=== PATIENT | female | born 1935 | race Caucasian/White ===

== ENCOUNTER 2021-09-11 09:30 | Inpatient (IN) | payer MEDICARE ==
[2021-09-11 09:52] LABS: Hemoglobin 12.2 g/dL (12.0-16.0); Mean Corpuscular HGB CONC 31.5 g/dL (32.0-36.0); Mean Corpuscular Hemoglobin 35.2 pg (27.0-31.0); Mean Platelet Volume 6.8 fL (7.4-10.4); Platelet Count 328 thou/uL (130-400)
[2021-09-11 10:16] LABS: Anisocytosis SLIGHT = 6-15 cells (100X) (0-5/hpf); Band 2 % (5-11); Hypochromia SLIGHT = 6-15 cells (100X) (0-5/hpf); Lymphocytes 9 % (21-51); MDiff Complete? YES; Macrocytosis SLIGHT = 6-15 cells (100X) (0-5/hpf); Monocytes 18 % (0-10); Neutrophil 71 % (42-75); Platelet Morphology Comment Appears Adequate; Polychromasia SLIGHT = 2-3 cells (100X) (0-2/hpf); Red Blood Cell (RBC) Count 3.47 mill/uL (4.20-5.40); White Blood Cell (WBC) Count 28.2 thou/uL (4.8-10.8)
[2021-09-11] MEDS ORDERED: Vancomycin 1 GM/200 ML BAG ONE (10:16)
[2021-09-11] MEDS ORDERED: Cefepime 2 GM VIAL ONE (10:16)
[2021-09-11 10:26] LABS: ALT (SGPT) 16 U/L (8-55); AST (SGOT) 24 U/L (5-34); Albumin 3.7 g/dL (3.4-4.8); Alkaline Phosphatase 104 U/L (40-110); Anion Gap 17 mmol/L (10-20); BUN (Urea Nitrogen) 11 mg/dL (9.8-20.1); Bilirubin, Total 0.7 mg/dL (0.2-1.2); CK (CPK) 34 U/L (29-168); Calc. Creatinine Clearance 0 mL/min (70-130); Carbon Dioxide 19 mmol/L (23-31); Chloride 105 mmol/L (98-107); Globulin 3.2 g/dL (2.4-3.5); Glucose 298 mg/dL (83-110); Lipase 22 U/L (8-78); Potassium 4.3 mmol/L (3.5-5.1); Protein, Total 6.9 g/dL (5.8-8.1); Sodium 137 mmol/L (136-145)
[2021-09-11 10:34] LABS: Actual Bicarbonate (HCO3a) 21.8 mEq/L (22-28); Analyzer IN Cardio ER; Base Excess (BEa) -4.4 mEq/L (-2.0 to +3.0); CO2 Tension 44.6 mmHg (35.0-45.0); Calcium, Ionized (arterial) 1.16 mmol/L (1.12-1.30); Carboxyhemoglobin (COHb) 0.3 gm% (0.0-3.0); Hemoglobin (Hb) 11.3 g/dL (12.0-16.0); Potassium - ABG Lab 4.35 mmol/L (3.70-5.30); pH, Arterial 7.31 (7.35-7.45)
[2021-09-11 10:43] LABS: O2 Tension (PaO2), arterial 50.2 mmHg (> 60.0); Puncture Site RBA
[2021-09-11] MEDS ORDERED: Aspirin Chewable 81 MG TAB ONE ×2 (11:20→11:21)
[2021-09-11 11:26] LABS: Bacteria/HPF None Seen HPF (None Seen); Bilirubin Negative (Negative); Blood, Urine 2+ (Negative); Clarity Clear (Clear); Glucose, Urine (Dipstick) Normal (Negative); Ketone, Urine Negative (Negative); Leukocyte Negative Leu/uL (Negative); Nitrite Negative (Negative); Protein, Urine (Dipstick) Negative (Neg-Trace); RBC/HPF 21-50 HPF (0-3); Specific Gravity, Urine 1.013 (1.002-1.036); Squamous Epithelial None Seen HPF (0-3); Urobilinogen Normal mg/dL (Less than 2); WBC/HPF 0-3 HPF (0-3); pH, Urine 7.5 (5.0-9.0)
[2021-09-11 12:58] LABS: Lactic Acid 2.1 mmol/L (0.5-2.2)
[2021-09-11] MEDS ORDERED: Electrolyte Replacement Protocol 1 EACH FS ONE (13:26)
[2021-09-11] MEDS ORDERED: Dextrose 50% Abboject 50 ML SYRINGE SLOW IVP PRN (13:26)
[2021-09-11] MEDS ORDERED: Ventilator Sedation Protocol 1 EACH FS ONE (13:26)
[2021-09-11] MEDS ORDERED: Dextrose 5% in Water 1,000 ML IV PRN (13:26)
[2021-09-11] MEDS ORDERED: Ondansetron PF 4 MG/2 ML Vial IVP PRN (13:26)
[2021-09-11] MEDS ORDERED: Ondansetron ODT 4 MG TAB PO PRN (13:26)
[2021-09-11] MEDS ORDERED: HumaLOG 300 UNITS/3 ML VIAL SC PRN (13:26)
[2021-09-11] MEDS ORDERED: Acetaminophen 500 MG TAB PO PRN (13:26)
[2021-09-11] MEDS ORDERED: Acetaminophen 650 MG Suppository PR PRN (13:26)
[2021-09-11] MEDS ORDERED: fentaNYL Citrate-0.9 % NaCl/PF 100 ML IV SCH (13:45)
[2021-09-11] MEDS ORDERED: Lorazepam 2 MG/ML VIAL SLOW IVP PRN (13:45)
[2021-09-11] MEDS ORDERED: Electrolyte Replacement Protocol FS PRN (13:45)
[2021-09-11] MEDS ORDERED: Fentanyl BOLUS 250 ML IVPB PRN (13:45)
[2021-09-11] MEDS ORDERED: Propofol BOLUS 1,000 MG/100 ML VIAL IV PRN (13:45)
[2021-09-11] MEDS ORDERED: Propofol 1,000 MG/100 ML VIAL IV PRN (13:45)
[2021-09-11] MEDS ORDERED: Morphine 4 MG/ML VIAL SLOW IVP PRN (13:45)
[2021-09-11] MEDS ORDERED: Furosemide 20 MG/2 ML VIAL SLOW IVP SCH (14:00)
[2021-09-11] MEDS ORDERED: CEFEPIME IVPB PRN (14:04)
[2021-09-11] MEDS ORDERED: Norepinephrine 8 MG/0.9% NS 250 ML IVPB SCH (14:30)
[2021-09-11] MEDS ORDERED: Famotidine/PF 20 mg/2ml Vial SLOW IVP SCH (21:00)
[2021-09-11] MEDS: Apixaban 2.5 MG TAB PO SCH (21:07)
[2021-09-11] MEDS: Cefepime 2 GM in Sodium Chloride 0.9% 100 ML IVPB SCH (21:07)
[2021-09-12 04:30] LABS: ALT (SGPT) 11 U/L (8-55); AST (SGOT) 18 U/L (5-34); Albumin 2.9 g/dL (3.4-4.8); Alkaline Phosphatase 72 U/L (40-110); Anion Gap 17 mmol/L (10-20); BUN (Urea Nitrogen) 15 mg/dL (9.8-20.1); Bilirubin, Total 0.7 mg/dL (0.2-1.2); Calc. Creatinine Clearance 51 mL/min (70-130); Calcium 8.2 mg/dL (7.8-10.44); Carbon Dioxide 21 mmol/L (23-31); Chloride 104 mmol/L (98-107); Globulin 2.3 g/dL (2.4-3.5); Glucose 148 mg/dL (83-110); Potassium 3.5 mmol/L (3.5-5.1); Protein, Total 5.2 g/dL (5.8-8.1); Sodium 138 mmol/L (136-145)
[2021-09-12] MEDS: Levothyroxine Sodium 100 MCG TAB PO SCH (05:17)
[2021-09-12 05:41] LABS: Mean Corpuscular HGB CONC 32.1 g/dL (32.0-36.0); Mean Corpuscular Hemoglobin 35.2 pg (27.0-31.0); Mean Platelet Volume 6.8 fL (7.4-10.4); Platelet Count 232 thou/uL (130-400); RBC Distribution Width 14.7 % (11.5-14.5); Red Blood Cell (RBC) Count 2.56 mill/uL (4.20-5.40); White Blood Cell (WBC) Count 14.5 thou/uL (4.8-10.8)
[2021-09-12 05:46] LABS: #Basophils 0.1 thou/uL (0.0-0.2); #Eosinphils 0.2 thou/uL (0.0-0.7); #Lymphocytes 1.5 thou/uL (1.20-3.40); #Monocytes 1.6 thou/uL (0.11-0.59); #Neutrophils 11.1 thou/uL (1.40-6.50); %Basophils 0.8 % (0.0-1.0); %Eosinophils 1.1 % (0.0-10.0); %Lymphocytes 10.3 % (21.0-51.0); %Monocytes 11.3 % (0.0-10.0); %Neutrophils 76.6 % (42.0-75.0)
[2021-09-12] MEDS ORDERED: Potassium Chloride 40 MEQ in Premix Bag 1 BAG IVPB SCH (06:15)
[2021-09-12] MEDS ORDERED: Magnesium 2 GM/50 ML(in water) 2 GM in Premix Bag 1 BAG IVPB SCH (06:15)
[2021-09-12] MEDS ORDERED: Loratadine 10 MG TAB PO SCH (09:00)
[2021-09-12] MEDS ORDERED: Vancomycin HCl 1 GM in Sodium Chloride 0.9% 250 ML 250 ML IVPB SCH (11:00)
[2021-09-12] MEDS: Pantoprazole 40 MG VIAL IVP SCH (11:01)
[2021-09-12] MEDS: Apixaban 2.5 MG TAB PO SCH ×2 (11:01→22:24)
[2021-09-12] MEDS: Cefepime 2 GM in Sodium Chloride 0.9% 100 ML IVPB SCH ×2 (11:01→22:26)
[2021-09-12] MEDS: HYDROcodone/Acetaminophen 5/325 mg Tablet PO PRN (16:19)
[2021-09-12] MEDS: Carvedilol 3.125 MG TAB PO SCH (16:20)
[2021-09-12] MEDS: metFORMIN 500 MG TAB PO SCH (17:44)
[2021-09-12] MEDS: Lactase 9,000 UNIT CHEWABLE TAB PO PRN (17:45)
[2021-09-12] MEDS: Mometasone Furoate 30 PUFF 220 MCG INH SCH (19:54)
[2021-09-12] MEDS: Gabapentin 300 MG CAP PO SCH (22:24)
[2021-09-12] MEDS: Atorvastatin Calcium 20 MG TAB PO SCH (22:24)
[2021-09-12] MEDS: predniSONE 1 MG TAB PO SCH (22:26)
[2021-09-12] MEDS: Potassium Chloride 20 MEQ TAB PO SCH (22:30)
[2021-09-13] MEDS ORDERED: hydrOXYzine 25 MG TAB PO PRN (00:24)
[2021-09-13 04:14] LABS: #Basophils 0.1 thou/uL (0.0-0.2); #Eosinphils 0.2 thou/uL (0.0-0.7); #Lymphocytes 1.1 thou/uL (1.20-3.40); #Monocytes 1.5 thou/uL (0.11-0.59); #Neutrophils 9.6 thou/uL (1.40-6.50); %Basophils 0.4 % (0.0-1.0); %Eosinophils 1.8 % (0.0-10.0); %Lymphocytes 9.1 % (21.0-51.0); %Monocytes 11.7 % (0.0-10.0); Hemoglobin 6.7 g/dL (12.0-16.0); Mean Corpuscular HGB CONC 32.4 g/dL (32.0-36.0); Mean Platelet Volume 6.7 fL (7.4-10.4); Platelet Count 210 thou/uL (130-400); RBC Distribution Width 14.4 % (11.5-14.5); Red Blood Cell (RBC) Count 1.86 mill/uL (4.20-5.40); White Blood Cell (WBC) Count 12.5 thou/uL (4.8-10.8)
[2021-09-13 04:37] LABS: ALT (SGPT) 10 U/L (8-55); AST (SGOT) 18 U/L (5-34); Albumin 2.6 g/dL (3.4-4.8); Alkaline Phosphatase 69 U/L (40-110); Anion Gap 11 mmol/L (10-20); BUN (Urea Nitrogen) 15 mg/dL (9.8-20.1); Bilirubin, Total 0.6 mg/dL (0.2-1.2); Calc. Creatinine Clearance 61 mL/min (70-130); Calcium 7.8 mg/dL (7.8-10.44); Carbon Dioxide 24 mmol/L (23-31); Chloride 105 mmol/L (98-107); Globulin 2.3 g/dL (2.4-3.5); Glucose 112 mg/dL (83-110); Potassium 3.6 mmol/L (3.5-5.1); Protein, Total 4.9 g/dL (5.8-8.1); Sodium 136 mmol/L (136-145)
[2021-09-13 05:06] LABS: #Basophils 0.1 thou/uL (0.0-0.2); #Eosinphils 0.2 thou/uL (0.0-0.7); #Lymphocytes 0.9 thou/uL (1.20-3.40); #Monocytes 1.2 thou/uL (0.11-0.59); %Basophils 0.5 % (0.0-1.0); %Eosinophils 1.7 % (0.0-10.0); %Lymphocytes 8.3 % (21.0-51.0); %Monocytes 11.4 % (0.0-10.0); %Neutrophils 78.1 % (42.0-75.0); Hemoglobin 7.6 g/dL (12.0-16.0); Mean Corpuscular Hemoglobin 35.4 pg (27.0-31.0); Mean Platelet Volume 7.1 fL (7.4-10.4); Platelet Count 187 thou/uL (130-400); RBC Distribution Width 14.4 % (11.5-14.5); Red Blood Cell (RBC) Count 2.15 mill/uL (4.20-5.40); White Blood Cell (WBC) Count 10.2 thou/uL (4.8-10.8)
[2021-09-13] MEDS: Levothyroxine Sodium 100 MCG TAB PO SCH (05:59)
[2021-09-13] MEDS ORDERED: Magnesium 2 GM/50 ML(in water) 2 GM in Premix Bag 1 BAG IVPB SCH (06:30)
[2021-09-13 06:41] LABS: Legionella Urinary Ag Negative (Negative); Strep pneumo Urine Ag NEGATIVE (NEGATIVE)
[2021-09-13] MEDS: Ferrous Sulfate 325 MG TAB PO SCH (08:45)
[2021-09-13] MEDS: metFORMIN 500 MG TAB PO SCH ×2 (08:47→18:28)
[2021-09-13] MEDS: Gabapentin 300 MG CAP PO SCH ×3 (08:48→22:05)
[2021-09-13] MEDS: Aspirin 81 mg Enteric Coated Tablet PO SCH (08:48)
[2021-09-13] MEDS: Loratadine 10 MG TAB PO SCH (08:49)
[2021-09-13] MEDS: Pantoprazole 40 MG VIAL IVP SCH (08:51)
[2021-09-13] MEDS: predniSONE 1 MG TAB PO SCH ×3 (08:51→22:16)
[2021-09-13] MEDS: Potassium Chloride 20 MEQ TAB PO SCH ×3 (08:52→22:07)
[2021-09-13] MEDS ORDERED: Cetirizine HCl 10 MG TAB PO SCH (09:00)
[2021-09-13] MEDS: Carvedilol 3.125 MG TAB PO SCH ×2 (09:37→18:28)
[2021-09-13] MEDS: HYDROcodone/Acetaminophen 5/325 mg Tablet PO PRN ×3 (09:45→22:27)
[2021-09-13] MEDS: Apixaban 2.5 MG TAB PO SCH ×2 (09:47→22:05)
[2021-09-13] MEDS: Cefepime 2 GM in Sodium Chloride 0.9% 100 ML IVPB SCH ×2 (09:50→22:08)
[2021-09-13] MEDS: Lactase 9,000 UNIT CHEWABLE TAB PO PRN ×2 (10:18→18:29)
[2021-09-13] MEDS: Stress 600 With Zinc 1 TAB PO SCH (10:19)
[2021-09-13] MEDS: Lidocaine 5% Patch TD SCH (10:20)
[2021-09-13] MEDS: Lactated Ringer's 1,000 ML IV SCH ×2 (11:37→12:00)
[2021-09-13] MEDS: Mometasone Furoate 30 PUFF 220 MCG INH SCH (19:10)
[2021-09-13] MEDS: Atorvastatin Calcium 20 MG TAB PO SCH (22:05)
[2021-09-13] MEDS: Transdermal Patch Removal TOP SCH (22:16)
[2021-09-14] MEDS: Diclofenac 1% 100 GM GEL TP PRN (00:30)
[2021-09-14] MEDS: HYDROcodone/Acetaminophen 5/325 mg Tablet PO PRN ×2 (04:48→21:25)
[2021-09-14] MEDS: Levothyroxine Sodium 100 MCG TAB PO SCH (04:56)
[2021-09-14] MEDS: Gabapentin 300 MG CAP PO SCH ×3 (09:18→21:22)
[2021-09-14] MEDS: Lactase 9,000 UNIT CHEWABLE TAB PO PRN (09:18)
[2021-09-14] MEDS: Potassium Chloride 20 MEQ TAB PO SCH ×3 (09:19→21:24)
[2021-09-14] MEDS: Aspirin 81 mg Enteric Coated Tablet PO SCH (09:20)
[2021-09-14] MEDS: metFORMIN 500 MG TAB PO SCH ×2 (09:20→17:07)
[2021-09-14] MEDS: predniSONE 1 MG TAB PO SCH (09:20)
[2021-09-14] MEDS: Stress 600 With Zinc 1 TAB PO SCH (09:20)
[2021-09-14] MEDS: Cefepime 2 GM in Sodium Chloride 0.9% 100 ML IVPB SCH ×2 (09:20→21:26)
[2021-09-14] MEDS: Carvedilol 3.125 MG TAB PO SCH ×2 (09:20→17:06)
[2021-09-14] MEDS: Loratadine 10 MG TAB PO SCH (09:20)
[2021-09-14] MEDS: Apixaban 2.5 MG TAB PO SCH ×2 (09:20→21:22)
[2021-09-14] MEDS: Ferrous Sulfate 325 MG TAB PO SCH (09:20)
[2021-09-14] MEDS: Pantoprazole 40 MG VIAL IVP SCH (09:21)
[2021-09-14] MEDS: Lidocaine 5% Patch TD SCH (09:21)
[2021-09-14 10:12] LABS: ALT (SGPT) 14 U/L (8-55); AST (SGOT) 19 U/L (5-34); Albumin 3.2 g/dL (3.4-4.8); Alkaline Phosphatase 93 U/L (40-110); Anion Gap 13 mmol/L (10-20); BUN (Urea Nitrogen) 18 mg/dL (9.8-20.1); Bilirubin, Total 0.7 mg/dL (0.2-1.2); Calc. Creatinine Clearance 72 mL/min (70-130); Calcium 8.7 mg/dL (7.8-10.44); Carbon Dioxide 21 mmol/L (23-31); Chloride 105 mmol/L (98-107); Globulin 3.2 g/dL (2.4-3.5); Glucose 153 mg/dL (83-110); Phosphorus 2.5 mg/dL (2.3-4.7); Potassium 4.3 mmol/L (3.5-5.1); Protein, Total 6.4 g/dL (5.8-8.1); Sodium 135 mmol/L (136-145)
[2021-09-14] MEDS ORDERED: Furosemide 20 MG/2 ML VIAL SLOW IVP SCH (11:45)
[2021-09-14] MEDS: Magnesium Oxide 250 MG TAB PO SCH ×2 (17:07→21:24)
[2021-09-14] MEDS: HumaLOG 300 UNITS/3 ML VIAL SC PRN (17:12)
[2021-09-14] MEDS: Mometasone Furoate 30 PUFF 220 MCG INH SCH (19:26)
[2021-09-14] MEDS: Atorvastatin Calcium 20 MG TAB PO SCH (21:22)
[2021-09-14] MEDS: Transdermal Patch Removal TOP SCH (22:14)
[2021-09-15] MEDS: HYDROcodone/Acetaminophen 5/325 mg Tablet PO PRN ×3 (04:16→21:08)
[2021-09-15 04:18] LABS: #Eosinphils 0.2 thou/uL (0.0-0.7); #Lymphocytes 1.5 thou/uL (1.20-3.40); #Monocytes 1.6 thou/uL (0.11-0.59); #Neutrophils 7.2 thou/uL (1.40-6.50); %Basophils 0.1 % (0.0-1.0); %Eosinophils 2.1 % (0.0-10.0); %Lymphocytes 14.4 % (21.0-51.0); %Monocytes 14.8 % (0.0-10.0); %Neutrophils 68.5 % (42.0-75.0); Mean Corpuscular HGB CONC 31.7 g/dL (32.0-36.0); Mean Corpuscular Hemoglobin 34.8 pg (27.0-31.0); Mean Platelet Volume 6.9 fL (7.4-10.4); Platelet Count 233 thou/uL (130-400); RBC Distribution Width 14.2 % (11.5-14.5); Red Blood Cell (RBC) Count 2.28 mill/uL (4.20-5.40); White Blood Cell (WBC) Count 10.5 thou/uL (4.8-10.8)
[2021-09-15 04:43] LABS: Anion Gap 14 mmol/L (10-20); BUN (Urea Nitrogen) 17 mg/dL (9.8-20.1); Calc. Creatinine Clearance 67 mL/min (70-130); Calcium 8.4 mg/dL (7.8-10.44); Carbon Dioxide 23 mmol/L (23-31); Chloride 108 mmol/L (98-107); Glucose 109 mg/dL (83-110); Magnesium 1.8 mg/dL (1.6-2.6); Potassium 5.1 mmol/L (3.5-5.1); Sodium 140 mmol/L (136-145)
[2021-09-15 04:44] LABS: Phosphorus 2.1 mg/dL (2.3-4.7)
[2021-09-15] MEDS: Levothyroxine Sodium 100 MCG TAB PO SCH (05:32)
[2021-09-15] MEDS ORDERED: Magnesium 2 GM/50 ML(in water) 2 GM in Premix Bag 1 BAG IVPB SCH (06:15)
[2021-09-15] MEDS: Cefepime 2 GM in Sodium Chloride 0.9% 100 ML IVPB SCH ×2 (08:25→21:02)
[2021-09-15] MEDS: predniSONE 1 MG TAB PO SCH (08:27)
[2021-09-15] MEDS: Stress 600 With Zinc 1 TAB PO SCH (08:28)
[2021-09-15] MEDS: Ferrous Sulfate 325 MG TAB PO SCH (08:28)
[2021-09-15] MEDS: Loratadine 10 MG TAB PO SCH (08:29)
[2021-09-15] MEDS: Carvedilol 3.125 MG TAB PO SCH ×2 (08:29→17:20)
[2021-09-15] MEDS: Aspirin 81 mg Enteric Coated Tablet PO SCH (08:29)
[2021-09-15] MEDS: Gabapentin 300 MG CAP PO SCH ×3 (08:29→21:04)
[2021-09-15] MEDS: Apixaban 2.5 MG TAB PO SCH ×2 (08:29→21:04)
[2021-09-15] MEDS: Magnesium Oxide 250 MG TAB PO SCH ×4 (08:29→21:05)
[2021-09-15] MEDS: metFORMIN 500 MG TAB PO SCH ×2 (08:29→17:20)
[2021-09-15] MEDS: Lidocaine 5% Patch TD SCH (08:30)
[2021-09-15] MEDS: Lactase 9,000 UNIT CHEWABLE TAB PO PRN (08:30)
[2021-09-15] MEDS ORDERED: Furosemide 20 MG/2 ML VIAL SLOW IVP SCH (09:15)
[2021-09-15] MEDS ORDERED: Lorazepam 0.5 MG TAB PO SCH (09:15)
[2021-09-15 09:18] LABS: Troponin I 0.018 ng/mL (< 0.028)
[2021-09-15] MEDS: Furosemide 20 MG/2 ML VIAL SLOW IVP SCH (13:57)
[2021-09-15] MEDS: Mometasone Furoate 30 PUFF 220 MCG INH SCH (19:30)
[2021-09-15] MEDS: Atorvastatin Calcium 20 MG TAB PO SCH (21:04)
[2021-09-15] MEDS: Polyethylene Glycol 3350 17 GM Packet PO SCH (21:06)
[2021-09-15] MEDS: Transdermal Patch Removal TOP SCH (21:07)
[2021-09-16] MEDS: HYDROcodone/Acetaminophen 5/325 mg Tablet PO PRN ×2 (04:00→20:34)
[2021-09-16 05:09] LABS: ALT (SGPT) 17 U/L (8-55); AST (SGOT) 23 U/L (5-34); Albumin 2.9 g/dL (3.4-4.8); Alkaline Phosphatase 75 U/L (40-110); Anion Gap 16 mmol/L (10-20); BUN (Urea Nitrogen) 15 mg/dL (9.8-20.1); Bilirubin, Total 0.7 mg/dL (0.2-1.2); Calc. Creatinine Clearance 68 mL/min (70-130); Calcium 8.5 mg/dL (7.8-10.44); Carbon Dioxide 25 mmol/L (23-31); Chloride 103 mmol/L (98-107); Glucose 132 mg/dL (83-110); Magnesium 1.9 mg/dL (1.6-2.6); Potassium 4.8 mmol/L (3.5-5.1); Protein, Total 5.9 g/dL (5.8-8.1); Sodium 139 mmol/L (136-145)
[2021-09-16 05:12] LABS: Phosphorus 1.8 mg/dL (2.3-4.7)
[2021-09-16 05:23] LABS: Band 2 % (5-11); Eosinophils 3 % (0-10); Hemoglobin 8.5 g/dL (12.0-16.0); Hypochromia SLIGHT = 6-15 cells (100X) (0-5/hpf); Lymphocytes 12 % (21-51); MDiff Complete? YES; Macrocytosis MODERATE=16-30 cells (100X) (0-5/hpf); Mean Corpuscular HGB CONC 30.7 g/dL (32.0-36.0); Mean Corpuscular Hemoglobin 33.2 pg (27.0-31.0); Mean Platelet Volume 7.3 fL (7.4-10.4); Metamyelocyte 2 % (0-0); Monocytes 13 % (0-10); Neutrophil 68 % (42-75); Ovalocytes SLIGHT = 2-5 cells (100X) (0-1/hpf); Platelet Count 261 thou/uL (130-400); Platelet Morphology Comment Appears Adequate; Polychromasia SLIGHT = 2-3 cells (100X) (0-2/hpf); RBC Distribution Width 14.2 % (11.5-14.5); Red Blood Cell (RBC) Count 2.54 mill/uL (4.20-5.40); Target Cells SLIGHT = 2-5 cells (100X) (0-1/hpf); White Blood Cell (WBC) Count 11.3 thou/uL (4.8-10.8)
[2021-09-16] MEDS: Furosemide 20 MG/2 ML VIAL SLOW IVP SCH ×2 (05:25→14:14)
[2021-09-16] MEDS: Levothyroxine Sodium 100 MCG TAB PO SCH (05:26)
[2021-09-16] MEDS ORDERED: Magnesium 2 GM/50 ML(in water) 2 GM in Premix Bag 1 BAG IVPB SCH (06:30)
[2021-09-16] MEDS: Magnesium Oxide 250 MG TAB PO SCH ×4 (09:43→20:34)
[2021-09-16] MEDS: Apixaban 2.5 MG TAB PO SCH ×2 (09:43→20:35)
[2021-09-16] MEDS: Stress 600 With Zinc 1 TAB PO SCH (09:44)
[2021-09-16] MEDS: metFORMIN 500 MG TAB PO SCH ×2 (09:44→18:01)
[2021-09-16] MEDS: Ferrous Sulfate 325 MG TAB PO SCH (09:44)
[2021-09-16] MEDS: predniSONE 1 MG TAB PO SCH (09:44)
[2021-09-16] MEDS: PHOS-NAK 1 PKT PACK PO SCH ×2 (09:44→14:13)
[2021-09-16] MEDS: Loratadine 10 MG TAB PO SCH (09:45)
[2021-09-16] MEDS: Gabapentin 300 MG CAP PO SCH ×3 (09:45→20:36)
[2021-09-16] MEDS: Carvedilol 3.125 MG TAB PO SCH ×2 (09:45→18:01)
[2021-09-16] MEDS: Lidocaine 5% Patch TD SCH (09:45)
[2021-09-16] MEDS: Cefepime 2 GM in Sodium Chloride 0.9% 100 ML IVPB SCH (09:45)
[2021-09-16] MEDS: Aspirin 81 mg Enteric Coated Tablet PO SCH (09:45)
[2021-09-16] MEDS ORDERED: Cholecalciferol 1,000 UNITS (25 MCG) TAB PO SCH (10:45)
[2021-09-16] MEDS: Calcium Carbonate 600 MG + Vit D TAB PO SCH ×2 (18:01→20:36)
[2021-09-16] MEDS: Mometasone Furoate 30 PUFF 220 MCG INH SCH (18:32)
[2021-09-16] MEDS: Cefdinir 300 MG CAP PO SCH (20:31)
[2021-09-16] MEDS: Atorvastatin Calcium 20 MG TAB PO SCH (20:34)
[2021-09-16] MEDS: Polyethylene Glycol 3350 17 GM Packet PO SCH (20:36)
[2021-09-17 04:55] LABS: Anion Gap 14 mmol/L (10-20); BUN (Urea Nitrogen) 16 mg/dL (9.8-20.1); Calc. Creatinine Clearance 63 mL/min (70-130); Calcium 8.8 mg/dL (7.8-10.44); Carbon Dioxide 30 mmol/L (23-31); Chloride 99 mmol/L (98-107); Glucose 104 mg/dL (83-110); Phosphorus 3.2 mg/dL (2.3-4.7); Potassium 3.7 mmol/L (3.5-5.1); Sodium 139 mmol/L (136-145)
[2021-09-17] MEDS: Furosemide 20 MG/2 ML VIAL SLOW IVP SCH ×2 (05:42→13:00)
[2021-09-17] MEDS: Levothyroxine Sodium 100 MCG TAB PO SCH (05:42)
[2021-09-17] MEDS: HYDROcodone/Acetaminophen 5/325 mg Tablet PO PRN ×2 (05:54→20:14)
[2021-09-17] MEDS ORDERED: Magnesium 2 GM/50 ML(in water) 2 GM in Premix Bag 1 BAG IVPB SCH (07:45)
[2021-09-17] MEDS: Cholecalciferol 1,000 UNITS (25 MCG) TAB PO SCH (09:57)
[2021-09-17] MEDS: Magnesium Oxide 250 MG TAB PO SCH ×4 (09:57→20:14)
[2021-09-17] MEDS: Aspirin 81 mg Enteric Coated Tablet PO SCH (09:58)
[2021-09-17] MEDS: Apixaban 2.5 MG TAB PO SCH ×2 (09:58→20:14)
[2021-09-17] MEDS: Ferrous Sulfate 325 MG TAB PO SCH (09:58)
[2021-09-17] MEDS: predniSONE 1 MG TAB PO SCH (09:58)
[2021-09-17] MEDS: metFORMIN 500 MG TAB PO SCH ×2 (09:58→16:52)
[2021-09-17] MEDS: Gabapentin 300 MG CAP PO SCH ×3 (09:59→20:13)
[2021-09-17] MEDS: Loratadine 10 MG TAB PO SCH (09:59)
[2021-09-17] MEDS: Stress 600 With Zinc 1 TAB PO SCH (10:00)
[2021-09-17] MEDS: Carvedilol 3.125 MG TAB PO SCH ×2 (10:00→16:52)
[2021-09-17] MEDS: Cefdinir 300 MG CAP PO SCH ×2 (10:00→20:13)
[2021-09-17] MEDS: Lactase 9,000 UNIT CHEWABLE TAB PO SCH ×2 (13:00→16:52)
[2021-09-17] MEDS: Calcium Carbonate 600 MG + Vit D TAB PO SCH ×2 (16:53→20:13)
[2021-09-17] MEDS ORDERED: Potassium Chloride 20 MEQ TAB PO SCH (17:00)
[2021-09-17] MEDS: Mometasone Furoate 30 PUFF 220 MCG INH SCH (18:20)
[2021-09-17] MEDS: Atorvastatin Calcium 20 MG TAB PO SCH (20:13)
[2021-09-17] MEDS: Polyethylene Glycol 3350 17 GM Packet PO SCH (20:15)
[2021-09-17] MEDS: Nystatin Powder 15 GM BOT TOP SCH (20:57)
[2021-09-18 04:20] LABS: #Basophils 0.1 thou/uL (0.0-0.2); #Eosinphils 0.3 thou/uL (0.0-0.7); #Lymphocytes 1.7 thou/uL (1.20-3.40); #Monocytes 1.3 thou/uL (0.11-0.59); #Neutrophils 6.3 thou/uL (1.40-6.50); %Basophils 0.8 % (0.0-1.0); %Eosinophils 3.2 % (0.0-10.0); %Lymphocytes 17.5 % (21.0-51.0); %Monocytes 13.6 % (0.0-10.0); %Neutrophils 64.8 % (42.0-75.0); Hemoglobin 7.7 g/dL (12.0-16.0); Mean Corpuscular HGB CONC 31.9 g/dL (32.0-36.0); Mean Corpuscular Hemoglobin 34.4 pg (27.0-31.0); Mean Platelet Volume 7.1 fL (7.4-10.4); Platelet Count 308 thou/uL (130-400); RBC Distribution Width 14.5 % (11.5-14.5); Red Blood Cell (RBC) Count 2.24 mill/uL (4.20-5.40); White Blood Cell (WBC) Count 9.7 thou/uL (4.8-10.8)
[2021-09-18 04:38] LABS: Anion Gap 15 mmol/L (10-20); BUN (Urea Nitrogen) 16 mg/dL (9.8-20.1); Calc. Creatinine Clearance 66 mL/min (70-130); Calcium 8.7 mg/dL (7.8-10.44); Carbon Dioxide 30 mmol/L (23-31); Chloride 97 mmol/L (98-107); Glucose 129 mg/dL (83-110); Potassium 4.1 mmol/L (3.5-5.1); Sodium 138 mmol/L (136-145)
[2021-09-18] MEDS: Furosemide 20 MG/2 ML VIAL SLOW IVP SCH ×2 (05:57→13:58)
[2021-09-18] MEDS: Levothyroxine Sodium 100 MCG TAB PO SCH (05:57)
[2021-09-18] MEDS ORDERED: Magnesium 2 GM/50 ML(in water) 2 GM in Premix Bag 1 BAG IVPB SCH (06:15)
[2021-09-18] MEDS: Carvedilol 3.125 MG TAB PO SCH ×2 (09:37→17:21)
[2021-09-18] MEDS: Ferrous Sulfate 325 MG TAB PO SCH (09:39)
[2021-09-18] MEDS: Aspirin 81 mg Enteric Coated Tablet PO SCH (09:40)
[2021-09-18] MEDS: metFORMIN 500 MG TAB PO SCH ×2 (09:40→17:22)
[2021-09-18] MEDS: Lactase 9,000 UNIT CHEWABLE TAB PO SCH ×3 (09:40→17:22)
[2021-09-18] MEDS: Apixaban 2.5 MG TAB PO SCH ×2 (09:40→20:59)
[2021-09-18] MEDS: Cefdinir 300 MG CAP PO SCH ×2 (09:41→20:59)
[2021-09-18] MEDS: Cholecalciferol 1,000 UNITS (25 MCG) TAB PO SCH (09:41)
[2021-09-18] MEDS: Gabapentin 300 MG CAP PO SCH ×3 (09:42→20:59)
[2021-09-18] MEDS: Magnesium Oxide 250 MG TAB PO SCH ×4 (09:42→20:58)
[2021-09-18] MEDS: Loratadine 10 MG TAB PO SCH (09:42)
[2021-09-18] MEDS: Nystatin Powder 15 GM BOT TOP SCH ×2 (09:43→21:00)
[2021-09-18] MEDS: predniSONE 1 MG TAB PO SCH (09:43)
[2021-09-18] MEDS: Stress 600 With Zinc 1 TAB PO SCH (09:46)
[2021-09-18] MEDS: HYDROcodone/Acetaminophen 5/325 mg Tablet PO PRN ×3 (09:50→23:53)
[2021-09-18] MEDS: HumaLOG 300 UNITS/3 ML VIAL SC PRN ×2 (11:09→14:10)
[2021-09-18] MEDS: Calcium Carbonate 600 MG + Vit D TAB PO SCH ×2 (17:22→20:59)
[2021-09-18] MEDS: Mometasone Furoate 30 PUFF 220 MCG INH SCH (19:04)
[2021-09-18] MEDS: Polyethylene Glycol 3350 17 GM Packet PO SCH (20:59)
[2021-09-18] MEDS: Atorvastatin Calcium 20 MG TAB PO SCH (20:59)
[2021-09-19 04:47] LABS: Anion Gap 14 mmol/L (10-20); BUN (Urea Nitrogen) 13 mg/dL (9.8-20.1); Calc. Creatinine Clearance 60 mL/min (70-130); Calcium 8.8 mg/dL (7.8-10.44); Carbon Dioxide 29 mmol/L (23-31); Chloride 97 mmol/L (98-107); Glucose 154 mg/dL (83-110); Potassium 4.2 mmol/L (3.5-5.1); Sodium 136 mmol/L (136-145)
[2021-09-19 04:59] LABS: Magnesium 1.9 mg/dL (1.6-2.6)
[2021-09-19] MEDS ORDERED: Magnesium 2 GM/50 ML(in water) 2 GM in Premix Bag 1 BAG IVPB SCH (05:15)
[2021-09-19] MEDS: Levothyroxine Sodium 100 MCG TAB PO SCH (05:56)
[2021-09-19] MEDS ORDERED: Furosemide 40 MG TAB PO SCH (07:30)
[2021-09-19] MEDS ORDERED: Sodium Chloride 0.65% Nasal 44 ML BOT EA NARE PRN (09:56)
[2021-09-19] MEDS ORDERED: Furosemide 20 MG/2 ML VIAL SLOW IVP SCH ×2 (10:00→18:30)
[2021-09-19] MEDS: Apixaban 2.5 MG TAB PO SCH ×2 (10:21→21:07)
[2021-09-19] MEDS: Lactase 9,000 UNIT CHEWABLE TAB PO SCH ×3 (10:21→16:53)
[2021-09-19] MEDS: Gabapentin 300 MG CAP PO SCH ×3 (10:21→21:07)
[2021-09-19] MEDS: Carvedilol 3.125 MG TAB PO SCH ×2 (10:21→16:53)
[2021-09-19] MEDS: Cholecalciferol 1,000 UNITS (25 MCG) TAB PO SCH (10:21)
[2021-09-19] MEDS: metFORMIN 500 MG TAB PO SCH ×2 (10:21→16:54)
[2021-09-19] MEDS: Aspirin 81 mg Enteric Coated Tablet PO SCH (10:21)
[2021-09-19] MEDS: Ferrous Sulfate 325 MG TAB PO SCH (10:21)
[2021-09-19] MEDS: Loratadine 10 MG TAB PO SCH (10:22)
[2021-09-19] MEDS: Nystatin Powder 15 GM BOT TOP SCH ×2 (10:22→21:09)
[2021-09-19] MEDS: Magnesium Oxide 250 MG TAB PO SCH ×4 (10:22→21:08)
[2021-09-19] MEDS: predniSONE 1 MG TAB PO SCH (10:23)
[2021-09-19] MEDS: Stress 600 With Zinc 1 TAB PO SCH (10:23)
[2021-09-19 10:55] LABS: Troponin I 0.011 ng/mL (< 0.028)
[2021-09-19 14:32] LABS: Troponin I 0.016 ng/mL (< 0.028)
[2021-09-19] MEDS: Calcium Carbonate 600 MG + Vit D TAB PO SCH ×2 (16:54→21:07)
[2021-09-19] MEDS: HumaLOG 300 UNITS/3 ML VIAL SC PRN (18:37)
[2021-09-19] MEDS: Mometasone Furoate 30 PUFF 220 MCG INH SCH (19:28)
[2021-09-19] MEDS: Atorvastatin Calcium 20 MG TAB PO SCH (21:07)
[2021-09-19] MEDS: HYDROcodone/Acetaminophen 5/325 mg Tablet PO PRN (21:08)
[2021-09-19] MEDS: Polyethylene Glycol 3350 17 GM Packet PO SCH (21:09)
[2021-09-20 04:41] LABS: #Basophils 0.1 thou/uL (0.0-0.2); #Eosinphils 0.5 thou/uL (0.0-0.7); #Monocytes 1.3 thou/uL (0.11-0.59); #Neutrophils 7.7 thou/uL (1.40-6.50); %Basophils 1.1 % (0.0-1.0); %Eosinophils 3.9 % (0.0-10.0); %Lymphocytes 17.5 % (21.0-51.0); %Monocytes 11.3 % (0.0-10.0); %Neutrophils 66.2 % (42.0-75.0); Mean Corpuscular HGB CONC 30.8 g/dL (32.0-36.0); Mean Corpuscular Hemoglobin 33.5 pg (27.0-31.0); Mean Platelet Volume 7.1 fL (7.4-10.4); Platelet Count 392 thou/uL (130-400); RBC Distribution Width 14.6 % (11.5-14.5); White Blood Cell (WBC) Count 11.7 thou/uL (4.8-10.8)
[2021-09-20 05:08] LABS: Anion Gap 15 mmol/L (10-20); BUN (Urea Nitrogen) 15 mg/dL (9.8-20.1); Calc. Creatinine Clearance 61 mL/min (70-130); Carbon Dioxide 32 mmol/L (23-31); Chloride 97 mmol/L (98-107); Glucose 121 mg/dL (83-110); Magnesium 2.1 mg/dL (1.6-2.6); Potassium 3.7 mmol/L (3.5-5.1); Sodium 140 mmol/L (136-145)
[2021-09-20] MEDS: Levothyroxine Sodium 100 MCG TAB PO SCH (05:38)
[2021-09-20] MEDS ORDERED: Furosemide 20 MG/2 ML VIAL SLOW IVP SCH ×2 (09:00→14:30)
[2021-09-20] MEDS: Magnesium Oxide 250 MG TAB PO SCH ×4 (09:11→21:41)
[2021-09-20] MEDS: Loratadine 10 MG TAB PO SCH (09:12)
[2021-09-20] MEDS: Apixaban 2.5 MG TAB PO SCH ×2 (09:12→21:40)
[2021-09-20] MEDS: Cholecalciferol 1,000 UNITS (25 MCG) TAB PO SCH (09:12)
[2021-09-20] MEDS: metFORMIN 500 MG TAB PO SCH ×2 (09:12→16:33)
[2021-09-20] MEDS: Ferrous Sulfate 325 MG TAB PO SCH (09:12)
[2021-09-20] MEDS: Aspirin 81 mg Enteric Coated Tablet PO SCH (09:12)
[2021-09-20] MEDS: Carvedilol 3.125 MG TAB PO SCH ×2 (09:13→16:32)
[2021-09-20] MEDS: predniSONE 1 MG TAB PO SCH (09:13)
[2021-09-20] MEDS: Stress 600 With Zinc 1 TAB PO SCH (09:13)
[2021-09-20] MEDS: Lactase 9,000 UNIT CHEWABLE TAB PO SCH ×3 (09:14→16:32)
[2021-09-20] MEDS: Gabapentin 300 MG CAP PO SCH ×3 (09:14→21:41)
[2021-09-20] MEDS: Nystatin Powder 15 GM BOT TOP SCH ×2 (09:29→21:00)
[2021-09-20] MEDS: HumaLOG 300 UNITS/3 ML VIAL SC PRN (11:55)
[2021-09-20 15:35] LABS: Iron Binding Capacity, Total 190 mcg/dL (265-497)
[2021-09-20 15:36] LABS: Iron 29 ug/dL (50-170)
[2021-09-20] MEDS: Calcium Carbonate 600 MG + Vit D TAB PO SCH ×2 (18:28→21:41)
[2021-09-20] MEDS: Mometasone Furoate 30 PUFF 220 MCG INH SCH (18:31)
[2021-09-20] MEDS ORDERED: IRON SUCROSE COMPLEX 100 MG/5 ML SLOW IVP SCH (18:45)
[2021-09-20] MEDS ORDERED: Iron, Sodium Ferric Gluconate 125 MG in Sodium Chloride 0.9% 100 ML IVPB SCH (20:00)
[2021-09-20] MEDS: Atorvastatin Calcium 20 MG TAB PO SCH (21:43)
[2021-09-20] MEDS: Polyethylene Glycol 3350 17 GM Packet PO SCH (21:48)
[2021-09-21] MEDS: Levothyroxine Sodium 100 MCG TAB PO SCH (04:40)
[2021-09-21] MEDS: Stress 600 With Zinc 1 TAB PO SCH (09:57)
[2021-09-21] MEDS: Magnesium Oxide 250 MG TAB PO SCH ×4 (09:57→21:10)
[2021-09-21] MEDS: Cholecalciferol 1,000 UNITS (25 MCG) TAB PO SCH (09:57)
[2021-09-21] MEDS: Aspirin 81 mg Enteric Coated Tablet PO SCH (09:57)
[2021-09-21] MEDS: Gabapentin 300 MG CAP PO SCH ×3 (09:57→21:11)
[2021-09-21] MEDS: Ferrous Sulfate 325 MG TAB PO SCH (09:58)
[2021-09-21] MEDS: Loratadine 10 MG TAB PO SCH (09:58)
[2021-09-21] MEDS: Furosemide 40 MG TAB PO SCH ×2 (09:58→13:00)
[2021-09-21] MEDS: Apixaban 2.5 MG TAB PO SCH ×2 (09:58→21:10)
[2021-09-21] MEDS: Nystatin Powder 15 GM BOT TOP SCH ×2 (09:58→21:00)
[2021-09-21] MEDS: predniSONE 1 MG TAB PO SCH (09:58)
[2021-09-21] MEDS: Lactase 9,000 UNIT CHEWABLE TAB PO SCH ×3 (09:58→16:00)
[2021-09-21] MEDS: Carvedilol 3.125 MG TAB PO SCH ×2 (09:58→16:00)
[2021-09-21] MEDS: metFORMIN 500 MG TAB PO SCH ×2 (09:58→16:00)
[2021-09-21] MEDS ORDERED: Furosemide 40 MG/4 ML VIAL ONE (10:52)
[2021-09-21] MEDS ORDERED: Furosemide 40 MG/4 ML VIAL SLOW IVP SCH (11:00)
[2021-09-21] MEDS: HumaLOG 300 UNITS/3 ML VIAL SC PRN (11:23)
[2021-09-21] MEDS: Calcium Carbonate 600 MG + Vit D TAB PO SCH ×2 (18:17→21:10)
[2021-09-21] MEDS: Mometasone Furoate 30 PUFF 220 MCG INH SCH (19:17)
[2021-09-21] MEDS: Polyethylene Glycol 3350 17 GM Packet PO SCH (21:00)
[2021-09-21] MEDS: Atorvastatin Calcium 20 MG TAB PO SCH (21:10)
[2021-09-21] MEDS ORDERED: Furosemide 20 MG/2 ML VIAL SLOW IVP SCH (22:00)
[2021-09-22] MEDS: Levothyroxine Sodium 100 MCG TAB PO SCH (05:38)
[2021-09-22] MEDS: Mometasone Furoate 30 PUFF 220 MCG INH SCH (07:28)
[2021-09-22] MEDS: Apixaban 2.5 MG TAB PO SCH ×2 (08:00→20:50)
[2021-09-22] MEDS: Aspirin 81 mg Enteric Coated Tablet PO SCH (08:00)
[2021-09-22] MEDS: Carvedilol 3.125 MG TAB PO SCH ×2 (08:00→15:48)
[2021-09-22] MEDS: Loratadine 10 MG TAB PO SCH (08:00)
[2021-09-22] MEDS: Magnesium Oxide 250 MG TAB PO SCH ×4 (08:01→20:46)
[2021-09-22] MEDS: predniSONE 1 MG TAB PO SCH (08:01)
[2021-09-22] MEDS: metFORMIN 500 MG TAB PO SCH ×2 (08:01→15:49)
[2021-09-22] MEDS: Ferrous Sulfate 325 MG TAB PO SCH (08:01)
[2021-09-22] MEDS: Gabapentin 300 MG CAP PO SCH ×3 (08:01→20:49)
[2021-09-22] MEDS: Cholecalciferol 1,000 UNITS (25 MCG) TAB PO SCH (08:01)
[2021-09-22] MEDS: Furosemide 40 MG TAB PO SCH ×2 (08:02→15:48)
[2021-09-22] MEDS: Lactase 9,000 UNIT CHEWABLE TAB PO SCH ×3 (08:02→15:48)
[2021-09-22] MEDS: Stress 600 With Zinc 1 TAB PO SCH (08:02)
[2021-09-22] MEDS: Nystatin Powder 15 GM BOT TOP SCH ×2 (08:02→20:51)
[2021-09-22 09:02] LABS: Anion Gap 14 mmol/L (10-20); BUN (Urea Nitrogen) 10 mg/dL (9.8-20.1); Calc. Creatinine Clearance 61 mL/min (70-130); Calcium 9.2 mg/dL (7.8-10.44); Carbon Dioxide 31 mmol/L (23-31); Chloride 97 mmol/L (98-107); Glucose 154 mg/dL (83-110); Magnesium 1.8 mg/dL (1.6-2.6); Potassium 3.4 mmol/L (3.5-5.1); Sodium 139 mmol/L (136-145)
[2021-09-22] MEDS ORDERED: Potassium Bicarbonate/Cit Ac 20 MEQ TAB PO SCH (11:00)
[2021-09-22] MEDS ORDERED: Magnesium 2 GM/50 ML(in water) 2 GM in Premix Bag 1 BAG IVPB SCH (11:15)
[2021-09-22] MEDS ORDERED: Potassium Chloride 20 MEQ TAB PO SCH (11:15)
[2021-09-22] MEDS ORDERED: Potassium Citrate 1100-334mg/5ml Oral Solution PO SCH (11:30)
[2021-09-22] MEDS: HumaLOG 300 UNITS/3 ML VIAL SC PRN (11:46)
[2021-09-22] MEDS: Calcium Carbonate 600 MG + Vit D TAB PO SCH ×2 (17:17→20:49)
[2021-09-22] MEDS: Polyethylene Glycol 3350 17 GM Packet PO SCH (20:49)
[2021-09-22] MEDS: Atorvastatin Calcium 20 MG TAB PO SCH (20:50)
[2021-09-22] MEDS: Diclofenac 1% 100 GM GEL TP PRN (21:02)
[2021-09-23 04:34] LABS: #Basophils 0.1 thou/uL (0.0-0.2); #Eosinphils 0.3 thou/uL (0.0-0.7); #Lymphocytes 1.9 thou/uL (1.20-3.40); #Monocytes 1.6 thou/uL (0.11-0.59); #Neutrophils 12.1 thou/uL (1.40-6.50); %Basophils 0.6 % (0.0-1.0); %Eosinophils 2.1 % (0.0-10.0); %Lymphocytes 11.7 % (21.0-51.0); %Monocytes 10.2 % (0.0-10.0); %Neutrophils 75.3 % (42.0-75.0); Mean Corpuscular HGB CONC 32.1 g/dL (32.0-36.0); Mean Corpuscular Hemoglobin 34.8 pg (27.0-31.0); Mean Platelet Volume 6.8 fL (7.4-10.4); Platelet Count 470 thou/uL (130-400); Red Blood Cell (RBC) Count 2.29 mill/uL (4.20-5.40)
[2021-09-23 04:55] LABS: Anion Gap 13 mmol/L (10-20); BUN (Urea Nitrogen) 11 mg/dL (9.8-20.1); Calc. Creatinine Clearance 62 mL/min (70-130); Calcium 8.9 mg/dL (7.8-10.44); Carbon Dioxide 31 mmol/L (23-31); Chloride 98 mmol/L (98-107); Glucose 150 mg/dL (83-110); Magnesium 2.1 mg/dL (1.6-2.6); Potassium 3.5 mmol/L (3.5-5.1); Sodium 138 mmol/L (136-145)
[2021-09-23] MEDS: Levothyroxine Sodium 100 MCG TAB PO SCH (05:37)
[2021-09-23] MEDS ORDERED: Potassium Bicarbonate/Cit Ac 20 MEQ TAB PO SCH (06:00)
[2021-09-23 07:53] VITALS: BMI 25.4
[2021-09-23] MEDS ORDERED: HYDROcodone/Acetaminophen 5/325 mg Tablet PO PRN (08:25)
[2021-09-23] MEDS: Lactase 9,000 UNIT CHEWABLE TAB PO SCH ×3 (09:21→17:13)
[2021-09-23] MEDS: metFORMIN 500 MG TAB PO SCH ×2 (09:21→17:13)
[2021-09-23] MEDS: Ferrous Sulfate 325 MG TAB PO SCH (09:21)
[2021-09-23] MEDS: Carvedilol 3.125 MG TAB PO SCH ×2 (09:21→17:13)
[2021-09-23] MEDS: Potassium Bicarbonate/Cit Ac 20 MEQ TAB PO SCH (09:22)
[2021-09-23] MEDS: Furosemide 40 MG TAB PO SCH ×2 (09:22→14:17)
[2021-09-23] MEDS: predniSONE 1 MG TAB PO SCH (09:22)
[2021-09-23] MEDS: Cholecalciferol 1,000 UNITS (25 MCG) TAB PO SCH (09:22)
[2021-09-23] MEDS: Stress 600 With Zinc 1 TAB PO SCH ×2 (09:22→09:46)
[2021-09-23] MEDS: Magnesium Oxide 250 MG TAB PO SCH ×4 (09:22→22:56)
[2021-09-23] MEDS: Gabapentin 300 MG CAP PO SCH ×3 (09:22→22:59)
[2021-09-23] MEDS: Loratadine 10 MG TAB PO SCH (09:22)
[2021-09-23] MEDS: Apixaban 2.5 MG TAB PO SCH ×2 (09:22→23:00)
[2021-09-23] MEDS: Nystatin Powder 15 GM BOT TOP SCH ×2 (09:22→23:00)
[2021-09-23] MEDS: Aspirin 81 mg Enteric Coated Tablet PO SCH (09:22)
[2021-09-23] MEDS: HumaLOG 300 UNITS/3 ML VIAL SC PRN (11:20)
[2021-09-23] MEDS: Calcium Carbonate 600 MG + Vit D TAB PO SCH ×2 (17:13→22:56)
[2021-09-23] MEDS: Mometasone Furoate 30 PUFF 220 MCG INH SCH (18:37)
[2021-09-23] MEDS: Atorvastatin Calcium 20 MG TAB PO SCH (22:59)
[2021-09-23] MEDS: Polyethylene Glycol 3350 17 GM Packet PO SCH (23:00)
[2021-09-24] MEDS: Levothyroxine Sodium 100 MCG TAB PO SCH (05:38)
[2021-09-24] MEDS: Stress 600 With Zinc 1 TAB PO SCH ×2 (09:08→10:20)
[2021-09-24] MEDS: Aspirin 81 mg Enteric Coated Tablet PO SCH (09:08)
[2021-09-24] MEDS: Cholecalciferol 1,000 UNITS (25 MCG) TAB PO SCH ×2 (09:08→10:20)
[2021-09-24] MEDS: Lactase 9,000 UNIT CHEWABLE TAB PO SCH ×4 (09:08→16:13)
[2021-09-24] MEDS: Furosemide 40 MG TAB PO SCH ×2 (09:08→14:27)
[2021-09-24] MEDS: Apixaban 2.5 MG TAB PO SCH ×2 (09:09→22:09)
[2021-09-24] MEDS: Loratadine 10 MG TAB PO SCH (09:09)
[2021-09-24] MEDS: Ferrous Sulfate 325 MG TAB PO SCH ×2 (09:09→10:18)
[2021-09-24] MEDS: Potassium Bicarbonate/Cit Ac 20 MEQ TAB PO SCH ×2 (09:09→10:19)
[2021-09-24] MEDS: Magnesium Oxide 250 MG TAB PO SCH ×4 (09:09→22:09)
[2021-09-24] MEDS: metFORMIN 500 MG TAB PO SCH ×3 (09:09→16:09)
[2021-09-24] MEDS: Carvedilol 3.125 MG TAB PO SCH ×2 (09:09→16:07)
[2021-09-24] MEDS: Gabapentin 300 MG CAP PO SCH ×4 (09:09→22:07)
[2021-09-24] MEDS: predniSONE 1 MG TAB PO SCH (09:09)
[2021-09-24] MEDS ORDERED: Furosemide 40 MG/4 ML VIAL SLOW IVP SCH (09:45)
[2021-09-24] MEDS ORDERED: Potassium Phosphate 30 MMOL in Sodium Chloride 0.9% 250 ML 250 ML IVPB SCH (10:00)
[2021-09-24] MEDS: HumaLOG 300 UNITS/3 ML VIAL SC PRN (11:42)
[2021-09-24] MEDS ORDERED: HumaLOG 300 UNITS/3 ML VIAL SC PRN ×2 (11:49→22:46)
[2021-09-24] MEDS ORDERED: NPH, Human Insulin Isophane 300 UNIT/3 ML VIAL SC SCH (12:00)
[2021-09-24 12:38] LABS: Troponin I 0.019 ng/mL (< 0.028)
[2021-09-24 13:33] LABS: SARS-CoV-2 NAA Rapid Test Not Detected (NotDetected)
[2021-09-24] MEDS: Nystatin Powder 15 GM BOT TOP SCH ×2 (13:34→23:30)
[2021-09-24 16:13] LABS: Anion Gap 17 mmol/L (10-20); BUN (Urea Nitrogen) 11 mg/dL (9.8-20.1); Calc. Creatinine Clearance 50 mL/min (70-130); Calcium 8.5 mg/dL (7.8-10.44); Carbon Dioxide 28 mmol/L (23-31); Chloride 99 mmol/L (98-107); Glucose 194 mg/dL (83-110); Potassium 4.2 mmol/L (3.5-5.1); Sodium 140 mmol/L (136-145)
[2021-09-24 16:23] LABS: Troponin I 0.023 ng/mL (< 0.028)
[2021-09-24] MEDS: Calcium Carbonate 600 MG + Vit D TAB PO SCH ×2 (18:23→22:09)
[2021-09-24] MEDS: Mometasone Furoate 30 PUFF 220 MCG INH SCH (18:50)
[2021-09-24] MEDS: Atorvastatin Calcium 20 MG TAB PO SCH (22:09)
[2021-09-24] MEDS: Polyethylene Glycol 3350 17 GM Packet PO SCH (22:26)
[2021-09-25 05:33] LABS: #Basophils 0.1 thou/uL (0.0-0.2); #Eosinphils 0.2 thou/uL (0.0-0.7); #Lymphocytes 1.8 thou/uL (1.20-3.40); #Monocytes 1.5 thou/uL (0.11-0.59); #Neutrophils 10.2 thou/uL (1.40-6.50); %Basophils 0.6 % (0.0-1.0); %Eosinophils 1.8 % (0.0-10.0); %Monocytes 10.6 % (0.0-10.0); Hemoglobin 7.8 g/dL (12.0-16.0); Mean Corpuscular HGB CONC 31.8 g/dL (32.0-36.0); Mean Corpuscular Hemoglobin 34.4 pg (27.0-31.0); Mean Platelet Volume 6.9 fL (7.4-10.4); Platelet Count 456 thou/uL (130-400); RBC Distribution Width 15.2 % (11.5-14.5); Red Blood Cell (RBC) Count 2.26 mill/uL (4.20-5.40); White Blood Cell (WBC) Count 13.7 thou/uL (4.8-10.8)
[2021-09-25 05:57] LABS: ALT (SGPT) 12 U/L (8-55); AST (SGOT) 18 U/L (5-34); Alkaline Phosphatase 64 U/L (40-110); Anion Gap 15 mmol/L (10-20); BUN (Urea Nitrogen) 13 mg/dL (9.8-20.1); Bilirubin, Total 0.5 mg/dL (0.2-1.2); Calc. Creatinine Clearance 60 mL/min (70-130); Calcium 8.1 mg/dL (7.8-10.44); Carbon Dioxide 30 mmol/L (23-31); Chloride 101 mmol/L (98-107); Globulin 2.9 g/dL (2.4-3.5); Glucose 105 mg/dL (83-110); Magnesium 1.9 mg/dL (1.6-2.6); Phosphorus 3.7 mg/dL (2.3-4.7); Potassium 3.7 mmol/L (3.5-5.1); Protein, Total 5.9 g/dL (5.8-8.1); Sodium 142 mmol/L (136-145)
[2021-09-25] MEDS: Levothyroxine Sodium 100 MCG TAB PO SCH (06:00)
[2021-09-25] MEDS ORDERED: Magnesium 2 GM/50 ML(in water) 2 GM in Premix Bag 1 BAG IVPB SCH (06:15)
[2021-09-25] MEDS: Gabapentin 300 MG CAP PO SCH ×2 (09:00→15:19)
[2021-09-25] MEDS: Stress 600 With Zinc 1 TAB PO SCH (09:00)
[2021-09-25] MEDS: Cholecalciferol 1,000 UNITS (25 MCG) TAB PO SCH (09:00)
[2021-09-25] MEDS: Aspirin 81 mg Enteric Coated Tablet PO SCH (09:00)
[2021-09-25] MEDS: Furosemide 40 MG TAB PO SCH ×2 (09:01→13:17)
[2021-09-25] MEDS: Loratadine 10 MG TAB PO SCH (09:01)
[2021-09-25] MEDS: Carvedilol 3.125 MG TAB PO SCH ×2 (09:01→17:10)
[2021-09-25] MEDS: Ferrous Sulfate 325 MG TAB PO SCH (09:01)
[2021-09-25] MEDS: Potassium Bicarbonate/Cit Ac 20 MEQ TAB PO SCH (09:01)
[2021-09-25] MEDS: Apixaban 2.5 MG TAB PO SCH (09:01)
[2021-09-25] MEDS: Magnesium Oxide 250 MG TAB PO SCH ×3 (09:01→17:10)
[2021-09-25] MEDS: predniSONE 1 MG TAB PO SCH (09:01)
[2021-09-25] MEDS: Nystatin Powder 15 GM BOT TOP SCH (09:02)
[2021-09-25] MEDS: metFORMIN 500 MG TAB PO SCH ×2 (09:02→17:10)
[2021-09-25] MEDS: Lactase 9,000 UNIT CHEWABLE TAB PO SCH ×3 (09:02→17:10)
[2021-09-25] MEDS: Calcium Carbonate 600 MG + Vit D TAB PO SCH (17:12)
[2021-09-25 17:23] VITALS: BP 133/60; TEMP 98.3
== END 2021-09-25 18:05 | disposition hospice, home (50) | DRG 871 ==
LOC: ERS 09:30 → CCU 11:45 → 2NO 09-13 17:09
PROVIDERS: ADMIT Internal Medicine; ATTEND Internal Medicine
PROC: 5A1935Z Respiratory Ventilation, Less than 24 Consecutive Hours (ICD-10-PCS; principal; 2021-09-11)
PROC: 0D9670Z Drainage of Stomach with Drainage Device, Via Natural or Artificial Opening (ICD-10-PCS; 2021-09-11)
PROC: 3E043XZ Introduction of Vasopressor into Central Vein, Percutaneous Approach (ICD-10-PCS; 2021-09-11)
PROC: 3E04329 Introduction of Other Anti-infective into Central Vein, Percutaneous Approach (ICD-10-PCS; 2021-09-11)
PROC: 4B02XTZ Measurement of Cardiac Defibrillator, External Approach (ICD-10-PCS; 2021-09-13)
DX: A41.9 Sepsis, unspecified organism (principal); J96.01 Acute respiratory failure with hypoxia; J96.02 Acute respiratory failure with hypercapnia; R65.21 Severe sepsis with septic shock; I50.43 Acute on chronic combined systolic (congestive) and diastolic (congestive) heart failure; J69.0 Pneumonitis due to inhalation of food and vomit; I31.3 Pericardial effusion (noninflammatory); Z66 Do not resuscitate; Z20.822 Contact with and (suspected) exposure to COVID-19; Z51.5 Encounter for palliative care; M19.90 Unspecified osteoarthritis, unspecified site; M79.7 Fibromyalgia; E05.00 Thyrotoxicosis with diffuse goiter without thyrotoxic crisis or storm; K21.9 Gastro-esophageal reflux disease without esophagitis; I25.10 Atherosclerotic heart disease of native coronary artery without angina pectoris; M35.3 Polymyalgia rheumatica; E11.40 Type 2 diabetes mellitus with diabetic neuropathy, unspecified; F41.9 Anxiety disorder, unspecified; J45.909 Unspecified asthma, uncomplicated; I08.3 Combined rheumatic disorders of mitral, aortic and tricuspid valves; E73.9 Lactose intolerance, unspecified; I87.2 Venous insufficiency (chronic) (peripheral); Z96.643 Presence of artificial hip joint, bilateral; Y95 Nosocomial condition; E86.9 Volume depletion, unspecified; E53.8 Deficiency of other specified B group vitamins; I25.5 Ischemic cardiomyopathy; F32.A Depression, unspecified; I48.0 Paroxysmal atrial fibrillation; D63.8 Anemia in other chronic diseases classified elsewhere; E11.65 Type 2 diabetes mellitus with hyperglycemia; K59.09 Other constipation; K27.9 Peptic ulcer, site unspecified, unspecified as acute or chronic, without hemorrhage or perforation; E87.5 Hyperkalemia; R13.10 Dysphagia, unspecified; E83.42 Hypomagnesemia; E83.39 Other disorders of phosphorus metabolism; E87.6 Hypokalemia; I25.2 Old myocardial infarction; Z87.891 Personal history of nicotine dependence; Z95.810 Presence of automatic (implantable) cardiac defibrillator; Z95.5 Presence of coronary angioplasty implant and graft; Z90.710 Acquired absence of both cervix and uterus; Z87.01 Personal history of pneumonia (recurrent); Z98.890 Other specified postprocedural states; Z90.49 Acquired absence of other specified parts of digestive tract; Z88.1 Allergy status to other antibiotic agents; Z88.2 Allergy status to sulfonamides; Z88.8 Allergy status to other drugs, medicaments and biological substances; Z79.899 Other long term (current) drug therapy; Z79.82 Long term (current) use of aspirin; Z79.890 Hormone replacement therapy; Z79.01 Long term (current) use of anticoagulants; Z79.4 Long term (current) use of insulin; Z88.6 Allergy status to analgesic agent; Z95.1 Presence of aortocoronary bypass graft; Z78.1 Physical restraint status; Z79.84 Long term (current) use of oral hypoglycemic drugs; Z82.49 Family history of ischemic heart disease and other diseases of the circulatory system; E89.0 Postprocedural hypothyroidism; Z98.42 Cataract extraction status, left eye; Z98.41 Cataract extraction status, right eye; D53.9 Nutritional anemia, unspecified
CPT/HCPCS: 36415; 36416; 36600; 71045; 71275; 80048; 80053; 82533; 82607; 82728; 82746; 82805; 83540; 83550; 83605; 83690; 83735; 83880; 84100; 84145; 84484; 85025; 87040; 87070; 87081; 87205; 87449; 87899; 93005; 93010; 93306; 94002; 94003; 96365; 96366; 96368; 97139; 99292; C9113; J0692; J1815; J1940; J2704; J2916; J3370; J3475; J3480; J3490; J7050; J7120; J7512; U0002